=== PATIENT | female | born 1980 | race Caucasian/White ===

== ENCOUNTER 2022-07-07 23:26 | Emergency (ER) | payer MEDICAID ==
[~2022-07-07] VITALS: Ht 162.6 cm; Wt 67.0 kg
[2022-07-08] MEDS ORDERED: normal saline 1000ml 1,000 ML IV ONE (00:25)
[2022-07-08] MEDS ORDERED: midazolam 1 mg/ML 2ml injection IV ONE (00:25)
[2022-07-08] MEDS ORDERED: proCHLORperazine 10 MG/2 ml inj IV ONE (00:50)
[2022-07-08 01:15] LABS: BASOPHILS # (AUTO) 0.1 X10'3 (0-0.2); BASOPHILS % (AUTO) 1.4 % (0-1); EOSINOPHILS # (AUTO) 0.4 X10'3 (0-0.9); EOSINOPHILS % (AUTO) 7.6 % (0-6); HEMATOCRIT 30.3 % (35.0-45.0); HEMOGLOBIN 10.2 g/dl (12.0-16.0); LYMPHOCYTES # (AUTO) 1.3 X10'3 (1.1-4.8); MEAN CORPUSCULAR HEMOGLOBIN 30.5 PG (27.0-31.0); MEAN CORPUSCULAR HGB CONC 33.6 g/dL (33.0-36.5); MEAN CORPUSCULAR VOLUME 90.6 FL (78-98); MONOCYTES # (AUTO) 0.9 X10'3 (0-0.9); MONOCYTES % (AUTO) 16.8 % (2-12); NEUTROPHILS # (AUTO) 2.8 X10'3 (1.8-7.7); NEUTROPHILS % (AUTO) 50.2 % (42-75); PLATELET COUNT 311 X10'3 (140-440); RED BLOOD COUNT 3.34 X10'6 (4.20-5.60); RED CELL DISTRIBUTION WIDTH 15.6 % (11.5-14.5); WHITE BLOOD COUNT 5.6 X10'3 (4.5-11.0)
[2022-07-08 01:17] LABS: CLARITY,URINE CLEAR (Clear); COLOR,URINE YELLOW (Yellow); GLUCOSE, URINE NEGATIVE (Neg); KETONES,URINE NEGATIVE (Neg); LEUKOCYTE ESTERASE ,URINE NEGATIVE (Neg); NITRITES, URINE NEGATIVE (Neg); OCCULT BLOOD,URINE NEGATIVE (Neg); PH,URINE 6.5 (4.8-8.0); PROTEIN,URINE NEGATIVE (Neg); UROBILINOGEN,URINE 0.2 E.U/dL (0.2-1.0)
[2022-07-08 01:20] LABS: UA COLLECTION TYPE OTHER
[2022-07-08 01:26] LABS: HCG SERUM QL NEGATIVE
[2022-07-08 01:31] LABS: URINE AMPHETAMINE SCREEN NEGATIVE (Neg); URINE BARBITUATE SCREEN NEGATIVE (Neg); URINE BENZODIAZEPINES SCREEN NEGATIVE (Neg); URINE CANNABINOID SCREEN NEGATIVE (Neg); URINE COCAINE SCREEN NEGATIVE (Neg); URINE METHADONE SCREEN NEGATIVE (Neg); URINE OPIATE SCREEN NEGATIVE (Neg); URINE PHENCYCLIDINE SCREEN NEGATIVE (Neg)
[2022-07-08 01:38] LABS: ALANINE AMINOTRANSFERASE 19 U/L (12-78); ALBUMIN 3.7 G/DL (3.4-5.0); ALBUMIN/GLOBULIN RATIO 1.1 (1.1-1.5); ALKALINE PHOSPHATASE 37 IU/L (46-116); ANION GAP 10 (8-16); ASPARTATE AMINO TRANSFERASE 18 U/L (10-37); BILIRUBIN,TOTAL 0.1 MG/DL (0.1-1.0); BLOOD UREA NITROGEN 10 MG/DL (7-18); BUN/CREATININE RATIO 9.6 (6.6-38.0); CHLORIDE 98 MMOL/L (99-107); CREATININE 1.04 MG/DL (0.40-0.90); ETHANOL < 0.010 GM/DL (0.0-0.010); GLUCOSE 119 MG/DL (70-104); POTASSIUM 3.7 MMOL/L (3.5-5.1); SODIUM 134 MMOL/L (135-145); TOTAL CARBON DIOXIDE 26.5 MMOL/L (24-32); TOTAL PROTEIN 7.2 G/DL (6.4-8.2); eGFR 58 ML/MIN
[2022-07-08 03:33] VITALS: BP 106/62
== END 2022-07-08 03:46 | disposition home or self-care (01) ==
LOC: ER 23:27
DX: F41.9 Anxiety disorder, unspecified (principal); T40.2X5A Adverse effect of other opioids, initial encounter; Y92.89 Other specified places as the place of occurrence of the external cause; Z88.2 Allergy status to sulfonamides; Z79.899 Other long term (current) drug therapy
CPT/HCPCS: 71045; 80053; 80305; 80320; 81003; 84145; 84443; 84484; 84703; 85025; 93005; 96374; 96375; 99285; J0780; J2250; J7030; 96361

== ENCOUNTER 2024-04-29 01:07 | Emergency (ER) | payer MEDICAID ==
[~2024-04-29] VITALS: Ht 162.6 cm; Wt 72.7 kg
[2024-04-29 02:31] LABS: BASOPHILS # (AUTO) 0.1 X10'3 (0-0.2); BASOPHILS % (AUTO) 0.9 % (0-1); EOSINOPHILS # (AUTO) 0.7 X10'3 (0-0.9); EOSINOPHILS % (AUTO) 10.8 % (0-6); HEMATOCRIT 33.7 % (35.0-45.0); LYMPHOCYTES # (AUTO) 1.7 X10'3 (1.1-4.8); LYMPHOCYTES % (AUTO) 26.1 % (21-51); MEAN CORPUSCULAR HEMOGLOBIN 27.9 PG (27.0-31.0); MEAN CORPUSCULAR HGB CONC 32.6 g/dL (33.0-36.5); MEAN CORPUSCULAR VOLUME 85.4 FL (78-98); MEAN PLATELET VOLUME 6.9 FL (7.4-10.4); MONOCYTES # (AUTO) 0.6 X10'3 (0-0.9); MONOCYTES % (AUTO) 9.2 % (2-12); NEUTROPHILS # (AUTO) 3.5 X10'3 (1.8-7.7); PLATELET COUNT 363 X10'3 (140-440); RED BLOOD COUNT 3.95 X10'6 (4.20-5.60); RED CELL DISTRIBUTION WIDTH 17.4 % (11.5-14.5); WHITE BLOOD COUNT 6.5 X10'3 (4.5-11.0)
[2024-04-29 02:42] LABS: URINE HCG NEGATIVE (NEG)
[2024-04-29 02:44] LABS: BILIRUBIN,URINE NEGATIVE (Neg); CLARITY,URINE CLEAR (Clear); COLOR,URINE STRAW (Yellow); GLUCOSE, URINE NEGATIVE (Neg); KETONES,URINE NEGATIVE (Neg); LEUKOCYTE ESTERASE ,URINE NEGATIVE (Neg); NITRITES, URINE NEGATIVE (Neg); OCCULT BLOOD,URINE NEGATIVE (Neg); PROTEIN,URINE NEGATIVE (Neg); UROBILINOGEN,URINE 0.2 E.U/dL (0.2-1.0)
[2024-04-29 02:54] LABS: UA COLLECTION TYPE CLN CATCH MIDSTREAM
[2024-04-29 02:54] LABS: ALBUMIN 3.8 G/DL (3.4-5.0); ANION GAP 10 (8-16); BLOOD UREA NITROGEN 5 MG/DL (7-18); BUN/CREATININE RATIO 6.9 (10.0-20.0); CALCIUM 9.1 MG/DL (8.5-10.1); CHLORIDE 103 MMOL/L (99-107); CREATININE 0.72 MG/DL (0.40-0.90); ETHANOL 193 MG/DL (<10); GLUCOSE 104 MG/DL (70-104); POTASSIUM 3.7 MMOL/L (3.5-5.1); SODIUM 142 MMOL/L (135-145); THYROID STIMULATING HORMONE 1.88 ulU/ml (0.34-4.50); TOTAL CARBON DIOXIDE 29.1 MMOL/L (24-32); eCRCL 86 ML/MIN; eGFR 88 ML/MIN
[2024-04-29] MEDS: diphenhydrAMINE 25mg capsule PO ONE (03:19)
[2024-04-29 04:08] LABS: URINE AMPHETAMINE SCREEN NEGATIVE (Neg); URINE BARBITUATE SCREEN NEGATIVE (Neg); URINE BENZODIAZEPINES SCREEN NEGATIVE (Neg); URINE CANNABINOID SCREEN NEGATIVE (Neg); URINE COCAINE SCREEN NEGATIVE (Neg); URINE METHADONE SCREEN NEGATIVE (Neg); URINE OPIATE SCREEN NEGATIVE (Neg)
[2024-04-29 04:22] LABS: URINE PHENCYCLIDINE SCREEN NEGATIVE (Neg)
[2024-04-29] MEDS ORDERED: CHOL500049 PO (04:26)
[2024-04-29] MEDS ORDERED: VENL150C5 PO (04:26)
[2024-04-29] MEDS ORDERED: ATOR20TA66 PO (04:29)
[2024-04-29] MEDS: acetaminophen 325mg tablet PO ONE ×2 (05:00→11:01)
[2024-04-29] MEDS: venlafaxine XR 75mg capsule (Q24H) PO SCH (08:47)
[2024-04-29] MEDS: atorvastatin 20mg tablet PO SCH (08:47)
[2024-04-29] MEDS: ondansetron 4mg rapidly disintigrating tab PO ONE (11:01)
[2024-04-29 11:27] VITALS: BP 113/68; PULSE 92; RESP 16; TEMP 97.2; O2SAT 97
[2024-05-01] MEDS ORDERED: ergocalciferol (vit D2) capsule 50,000 UNITS (1,250mcg) CAPSULE PO SCH (09:00)
== END 2024-04-29 11:30 | disposition home or self-care (01) ==
LOC: ER 01:07
DX: R45.851 Suicidal ideations (principal); Z20.822 Contact with and (suspected) exposure to COVID-19; Z88.2 Allergy status to sulfonamides; Z91.018 Allergy to other foods
CPT/HCPCS: 36415; 80048; 80305; 80320; 81003; 81025; 84443; 85025; 87811; 99285; Q0163

== ENCOUNTER 2024-07-31 17:12 | Emergency (ER) | payer MEDICAID ==
[~2024-07-31] VITALS: Ht 162.6 cm; Wt 75.0 kg
[~2024-07-31 17:12] MED LIST: ATOR20TA66 PO; CHOL500049 PO; VENL150C5 PO
[2024-07-31 17:40] LABS: BILIRUBIN,URINE NEGATIVE (Neg); CLARITY,URINE SLIGHTLY CLOUDY (Clear); COLOR,URINE YELLOW (Yellow); GLUCOSE, URINE NEGATIVE (Neg); KETONES,URINE 40 mg/dl (Neg); LEUKOCYTE ESTERASE ,URINE NEGATIVE (Neg); NITRITES, URINE NEGATIVE (Neg); OCCULT BLOOD,URINE NEGATIVE (Neg); PH,URINE 5.5 (4.8-8.0); PROTEIN,URINE NEGATIVE (Neg); URINE HCG NEGATIVE (NEG); UROBILINOGEN,URINE 0.2 E.U/dL (0.2-1.0)
[2024-07-31 17:45] LABS: UA COLLECTION TYPE CLN CATCH MIDSTREAM
[2024-07-31 17:46] LABS: BACTERIA,URINE 1+ /HPF (Neg); MUCUS STRANDS MODERATE /LPF (Neg); SQUAMOUS EPITHELIAL CELL,UR MANY /LPF (FEW); TRANSITIONAL EPI CELLS,URINE FEW /HPF; WBC,URINE 0-4 /HPF (0-4)
[2024-07-31 17:58] LABS: BASOPHILS # (AUTO) 0.1 X10'3 (0-0.2); EOSINOPHILS # (AUTO) 0.8 X10'3 (0-0.9); HEMOGLOBIN 10.4 g/dl (12.0-16.0); LYMPHOCYTES # (AUTO) 1.3 X10'3 (1.1-4.8); MEAN CORPUSCULAR HGB CONC 32.1 g/dL (33.0-36.5); MEAN PLATELET VOLUME 6.5 FL (7.4-10.4); MONOCYTES # (AUTO) 0.5 X10'3 (0-0.9); NEUTROPHILS # (AUTO) 3.1 X10'3 (1.8-7.7); WHITE BLOOD COUNT 5.8 X10'3 (4.5-11.0)
[2024-07-31 18:00] LABS: BASOPHILS % (AUTO) 2.4 % (0-1); EOSINOPHILS % (AUTO) 13.9 % (0-6); HEMATOCRIT 32.5 % (35.0-45.0); LYMPHOCYTES % (AUTO) 22.1 % (21-51); MEAN CORPUSCULAR HEMOGLOBIN 27.1 PG (27.0-31.0); MEAN CORPUSCULAR VOLUME 84.6 FL (78-98); NEUTROPHILS % (AUTO) 53.6 % (42-75); PLATELET COUNT 384 X10'3 (140-440); RED BLOOD COUNT 3.84 X10'6 (4.20-5.60)
[2024-07-31 18:09] LABS: ALANINE AMINOTRANSFERASE 28 U/L (12-78); ALBUMIN 3.8 G/DL (3.4-5.0); ALBUMIN/GLOBULIN RATIO 1.1 (1.1-1.5); ALKALINE PHOSPHATASE 47 IU/L (46-116); ANION GAP 12 (8-16); ASPARTATE AMINO TRANSFERASE 24 U/L (10-37); BILIRUBIN,TOTAL 0.2 MG/DL (0.1-1.0); BLOOD UREA NITROGEN 4 MG/DL (7-18); BUN/CREATININE RATIO 4.4 (10.0-20.0); CALCIUM 8.6 MG/DL (8.5-10.1); CHLORIDE 104 MMOL/L (99-107); CREATININE 0.91 MG/DL (0.40-0.90); GLUCOSE 87 MG/DL (70-104); LIPASE 34 U/L (16-77); POTASSIUM 3.8 MMOL/L (3.5-5.1); SODIUM 140 MMOL/L (135-145); TOTAL CARBON DIOXIDE 24.4 MMOL/L (24-32); TOTAL PROTEIN 7.3 G/DL (6.4-8.2); eCRCL 68 ML/MIN; eGFR 67 ML/MIN
[2024-07-31 18:18] LABS: ANISOCYTOSIS 1+; BURR CELLS FEW; ELLIPTOCYTES 1+; HYPOCHROMASIA 1+; PLATELET ESTIMATE NORMAL; TOTAL CELLS COUNTED 100
[2024-07-31] MEDS ORDERED: famotidine/PF IV inj 20 MG in normal saline 100ml IV soln 100 ML IV ONE (18:30)
[2024-07-31] MEDS: normal saline 1000ml 1,000 ML IV ONE (18:45)
[2024-07-31] MEDS: ondansetron/PF 4mg/2ml inj IV ONE (18:45)
[2024-07-31] MEDS: famotidine/PF 10 mg/ml inj IV ONE (19:02)
[2024-07-31 19:42] VITALS: BP 112/72; PULSE 78; RESP 16; TEMP 98; O2SAT 97
== END 2024-07-31 19:44 | disposition home or self-care (01) ==
LOC: ER 17:13
DX: E86.0 Dehydration (principal); F10.10 Alcohol abuse, uncomplicated; R11.2 Nausea with vomiting, unspecified; Z88.2 Allergy status to sulfonamides; Z79.899 Other long term (current) drug therapy; Z87.891 Personal history of nicotine dependence
CPT/HCPCS: 36415; 80053; 81001; 81025; 83690; 85007; 85025; 96361; 96374; 96375; 99284; J2405; J3490; J7030